=== PATIENT | male | born 1980 | race Caucasian/White ===

== ENCOUNTER 2022-05-11 09:51 | Outpatient (CLI) | payer BC | END 2022-05-11 09:52 | disposition home or self-care (01) | LOC: BICRAD 09:51 | PROVIDERS: ATTEND Nurse Practitioner Family | DX: R06.02 Shortness of breath (principal) | CPT/HCPCS: 71046 ==

== ENCOUNTER 2024-12-26 10:16 | Emergency (ER) | payer BC, SELFPAY | END 2024-12-26 12:25 | disposition home or self-care (01) | LOC: ERS 10:16 | DX: M25.571 Pain in right ankle and joints of right foot (principal); M79.671 Pain in right foot; Z79.899 Other long term (current) drug therapy | CPT/HCPCS: 96372; 99283 ==

== ENCOUNTER 2025-01-11 11:18 | Emergency (ER) | payer SELFPAY ==
[2025-01-11 11:56] LABS: #Basophils 0.05 10x3/uL (0.0-0.2); #Eosinophils 0.29 10x3/uL (0.0-0.7); #Monocytes 0.67 10x3/uL (0.11-0.59); #Neutrophils 2.73 10x3/uL (1.40-6.50); %Basophils 0.9 % (0.0-1.0); %Eosinophils 5.0 % (0.0-10.0); %Lymphocytes 34.8 % (21.0-51.0); %Monocytes 11.7 % (0.0-10.0); %Neutrophils 47.4 % (42.0-75.0); Hematocrit 44.1 % (42.0-52.0); Hemoglobin 15.5 g/dL (14.0-18.0); Mean Corpuscular Hemoglobin 29.2 pg (27.0-31.0); Mean Corpuscular Volume 83.2 fL (78.0-98.0); Platelet Count 259 10x3/uL (130-400); Red Blood Cell (RBC) Count 5.30 mill/uL (4.70-6.10); White Blood Cell (WBC) Count 5.75 10x3/uL (4.8-10.8)
[2025-01-11 12:16] LABS: ALT (SGPT) 70 U/L (Less than 45); AST (SGOT) 45 U/L (11-34); Albumin 4.7 g/dL (3.1-4.5); Alkaline Phosphatase 72 U/L (40-110); Anion Gap 16 mmol/L (10-20); BUN (Urea Nitrogen) 11 mg/dL (8.9-20.6); Bilirubin, Total 0.9 mg/dL (0.3-1.2); Calc. Creatinine Clearance 0 mL/min (70-130); Calcium 9.4 mg/dL (7.8-10.44); Carbon Dioxide 25 mmol/L (22-29); Chloride 106 mmol/L (98-107); Globulin 2.8 g/dL (2.4-3.5); Glucose 100 mg/dL (70-105); Potassium 4.4 mmol/L (3.5-5.1); Sodium 143 mmol/L (136-145)
[2025-01-11 12:17] LABS: Acetaminophen Less than 10 mcg/mL (Less than 10); Salicylate Less than 8.0 mg/dL (Less than 8.0)
[2025-01-11 12:21] LABS: Cocaine Metabolite Screen Negative (Negative); THC/Cannabinoid Screen Negative (Negative); Tricyclic Screen Negative (Negative)
== END 2025-01-11 15:15 | disposition home or self-care (01) ==
LOC: ERS 11:18
DX: R45.851 Suicidal ideations (principal); R74.01 Elevation of levels of liver transaminase levels; Z79.899 Other long term (current) drug therapy
CPT/HCPCS: 80053; 80306; 80307; 85025

== ENCOUNTER 2025-01-30 08:32 | Emergency (ER) | payer SELFPAY ==
[2025-01-30] MEDS ORDERED: Ketorolac Tromethamine 30 MG (1 mL) VIAL ONE (09:06)
== END 2025-01-30 10:23 | disposition home or self-care (01) ==
LOC: ERS 08:32
DX: M54.9 Dorsalgia, unspecified (principal)
CPT/HCPCS: 96372; 99283; J1885; J2919